=== PATIENT | female | born 2000 | race Caucasian/White ===

== ENCOUNTER → 2019-11-18 | Outpatient (REF) | payer BC, MEDICAID ==
[2019-11-18 12:09] LABS: BASO # 0.1 10^3/uL (0.0-0.2); BASO % 0.7 % (0.0-1.0); EOS # 0.1 10^3/uL (0.0-0.5); HEMATOCRIT 42.5 % (36.0-47.0); HEMOGLOBIN 13.5 g/dl (12.0-15.5); LYMPH # 3.3 10^3/uL (1.5-5.0); LYMPH % 33.4 % (24.0-44.0); MEAN CORPUSCULAR HEMOGLOBIN 26.9 pg (27.0-33.0); MEAN CORPUSCULAR HGB CONC 31.8 g/dl (32.0-36.5); MEAN CORPUSCULAR VOLUME 84.8 fl (80.0-96.0); MONO # 0.6 10^3/uL (0.0-0.8); MONO % 6.1 % (0.0-5.0); NEUTROPHILS # 5.7 10^3/uL (1.5-8.5); NEUTROPHILS % 58.2 % (36.0-66.0); PLATELET COUNT, AUTOMATED 333 10^3/uL (150-450); RED BLOOD COUNT 5.01 10^6/uL (4.00-5.40); WHITE BLOOD COUNT 9.8 10^3/uL (4.0-10.0)
[2019-11-18 12:25] LABS: TESTOSTERONE 30 NG/DL (14-76); TOTAL 25(OH) VITAMIN D 9.5 NG/ML (30.0-100.0)
[2019-11-18 12:27] LABS: ALBUMIN 3.5 GM/DL (3.2-5.2); ALT/SGPT 27 U/L (12-78); BILIRUBIN,TOTAL 0.4 MG/DL (0.2-1.0); BLOOD UREA NITROGEN 12 MG/DL (7-18); CALCIUM LEVEL 9.3 MG/DL (8.5-10.1); CARBON DIOXIDE LEVEL 28 MEQ/L (21-32); CHLORIDE LEVEL 107 MEQ/L (98-107); CHOLESTEROL LEVEL 154 MG/DL (<200); CHOLESTEROL RISK RATIO 3.756 (<5); CREATININE FOR GFR 0.65 MG/DL (0.55-1.30); FOLLICLE STIMULATING HORMONE 7.4 mIU/mL; FREE T4 4.25 NG/DL (0.78-1.33); GLUCOSE, FASTING 75 MG/DL (70-100); HDL CHOLESTEROL 41 MG/DL (>40); LDL CHOLESTEROL 94 MG/DL (<100); NON-HDL-C 113 MG/DL; POTASSIUM SERUM 4.4 MEQ/L (3.5-5.1); PROGESTERONE 0.22 NG/ML; SODIUM LEVEL 141 MEQ/L (136-145); TOTAL PROTEIN 7.4 GM/DL (6.4-8.2); TRIGLYCERIDES LEVEL 94 MG/DL (<150)
== END ==
LOC: M LAB REF 11:17
PROVIDERS: ATTEND Physician Assistant
DX: E66.01 Morbid (severe) obesity due to excess calories (principal); Z68.41 Body mass index [BMI] 40.0-44.9, adult; R10.31 Right lower quadrant pain; Z30.018 Encounter for initial prescription of other contraceptives; N92.6 Irregular menstruation, unspecified; N64.4 Mastodynia

== ENCOUNTER → 2019-11-25 | Outpatient (CLI) | payer BC, MEDICAID ==
--- NOTE | 2019-11-28 08:43 | REP ---
FOCUSED SONOGRAPHY RIGHT BREAST: HISTORY: Mastodynia. Pain in the right breast at the 5-7-o'clock region. FINDINGS: Scanning of the right inferior breast demonstrates heterogeneous fibroglandular background echotexture. No cyst, mass, or acoustic shadowing is seen. No suspicious abnormality. IMPRESSION: BIRADS category 1 negative findings. Clinical followup is advised.
== END ==
LOC: M WHC 10:45
PROVIDERS: ATTEND Physician Assistant
DX: N64.4 Mastodynia (principal)

== ENCOUNTER → 2019-12-06 | Outpatient (CLI) | payer BC, MEDICAID ==
[2019-12-06 18:24] LABS: FREE T4 4.76 NG/DL (0.78-1.33); THYROID STIMULATING HORMONE 3.2 uIU/ML (0.463-3.98)
[2019-12-06 18:26] LABS: PROLACTIN 8.7 NG/ML
== END ==
LOC: M PLALAB 15:17
PROVIDERS: ATTEND Internal Medicine Endocrinology, Diabetes & Metabolism
DX: R94.6 Abnormal results of thyroid function studies (principal)

== ENCOUNTER → 2019-12-28 | Outpatient (CLI) | payer BC, MEDICAID ==
[2019-12-28 14:38] LABS: FREE T3 3.1 PG/ML (2.9-4.5); FREE T4 4.8 NG/DL (0.78-1.33)
[2019-12-28 14:40] LABS: THYROID PEROXIDASE ANTIBODY 40.5 U/ML (<60.0)
[2019-12-30 06:55] LABS: THYROID STIMULATING IMMUNOGLOB <0.10 IU/L (0.00-0.55); TSH RECEPTOR ASSAY <1.10 IU/L (0.00-1.75)
== END ==
LOC: M WUC 12:52
PROVIDERS: ATTEND Internal Medicine Endocrinology, Diabetes & Metabolism
DX: R94.6 Abnormal results of thyroid function studies (principal)

== ENCOUNTER → 2020-04-16 | Outpatient (REF) | payer MEDICAID | LOC: M LAB REF 15:55 | PROVIDERS: ATTEND Physician Assistant | DX: E55.9 Vitamin D deficiency, unspecified (principal) ==

== ENCOUNTER → 2024-01-13 | Outpatient (REF) | payer MEDICAID, OTHER ==
[2024-01-13 18:44] LABS: BASO # 0.1 10^3/uL (0.0-0.2); BASO % 0.6 % (0.0-1.0); EOS # 0.1 10^3/uL (0.0-0.5); EOS % 0.7 % (0.0-3.0); HEMATOCRIT 41.1 % (36.0-47.0); HEMOGLOBIN 14.3 g/dl (12.0-15.5); LYMPH # 2.5 10^3/uL (1.5-5.0); LYMPH % 20.5 % (24.0-44.0); MEAN CORPUSCULAR HEMOGLOBIN 30.4 pg (27.0-33.0); MEAN CORPUSCULAR HGB CONC 34.8 g/dl (32.0-36.5); MEAN CORPUSCULAR VOLUME 87.4 fl (80.0-96.0); MONO # 0.7 10^3/uL (0.0-0.8); MONO % 5.7 % (2.0-8.0); NEUTROPHILS # 8.7 10^3/uL (1.5-8.5); NEUTROPHILS % 72.1 % (36.0-66.0); PLATELET COUNT, AUTOMATED 315 10^3/uL (150-450); WHITE BLOOD COUNT 12.1 10^3/uL (4.0-10.0)
[2024-01-13 19:04] LABS: ALBUMIN 3.4 G/DL (3.2-5.2); ALKALINE PHOSPHATASE 111 U/L (46-116); ALT/SGPT 37 U/L (7.0-40); AST/SGOT 20 U/L (<34); BILIRUBIN,TOTAL 0.4 MG/DL (0.3-1.2); BLOOD UREA NITROGEN 13 MG/DL (9-23); CALCIUM LEVEL 8.8 MG/DL (8.5-10.1); CARBON DIOXIDE LEVEL 27 MMOL/L (20-31); CHLORIDE LEVEL 105 MMOL/L (98-107); CREATININE FOR GFR 0.65 MG/DL (0.55-1.30); GLOMERULAR FILTRATION RATE > 60.0 (>60); GLUCOSE, FASTING 78 MG/DL (60-100); POTASSIUM SERUM 3.8 MMOL/L (3.5-5.1); SODIUM LEVEL 139 MMOL/L (136-145); THYROID STIMULATING HORMONE 2.369 uIU/ML (0.55-4.78); TOTAL 25(OH) VITAMIN D 15.1 NG/ML (20.0-100.0)
[2024-01-13 19:24] LABS: HEMOGLOBIN A1c 5.1 % (4.0-6.0)
== END ==
LOC: M LAB REF 16:36
PROVIDERS: ATTEND Nurse Practitioner Family
DX: E28.2 Polycystic ovarian syndrome (principal); Z68.41 Body mass index [BMI] 40.0-44.9, adult; E55.9 Vitamin D deficiency, unspecified

== ENCOUNTER 2024-03-14 22:34 | Emergency (ER) | payer OTHER ==
[~2024-03-14] VITALS: Ht 165.1 cm; Wt 121.6 kg
[2024-03-15] MEDS: ACETAMINOPHEN 500 MG TAB PO ONE (00:24)
[2024-03-15] MEDS: BOOSTRIX VACCINE (TETANUS/DIPHTH/ACEL. PERTUSSIS) 0.5ML SYR IM ONE (00:25)
[2024-03-15 00:32] VITALS: BP 131/82; TEMP 97.8; O2SAT 99
== END 2024-03-15 00:34 | disposition home or self-care (01) ==
LOC: M ED 22:34
DX: S63.501A Unspecified sprain of right wrist, initial encounter (principal); W19.XXXA Unspecified fall, initial encounter; Y92.480 Sidewalk as the place of occurrence of the external cause; Y93.9 Activity, unspecified; Y99.0 Civilian activity done for income or pay

== ENCOUNTER → 2024-09-20 | Outpatient (CLI) | payer OTHER ==
[~2024-09-20] MED LIST: ISOVUE-300 61% 100ML VIAL As Ordered ONE; LIDOCAINE 1% MDV 20ML VIAL As Ordered ONE; PROHANCE 279.3MG/ML 5ML VIAL As Ordered ONE
== END ==
LOC: M RAD 06:25
PROVIDERS: ATTEND Physician Assistant
DX: M65.831 Other synovitis and tenosynovitis, right forearm (principal); S65.511A Laceration of blood vessel of left index finger, initial encounter
CPT/HCPCS: 25246; 73223; 77002; A9576; Q9967